=== PATIENT | female | born 1955 | race Caucasian/White ===

== ENCOUNTER → 2024-02-03 15:01 | Outpatient (REF) | payer MEDICARE, OTHER, SELFPAY | LOC: WDC 15:01 | PROVIDERS: ATTENDING PHYSICIAN Obstetrics & Gynecology; FAMILY PHYSICIAN Internal Medicine | DX: Z12.31 Encounter for screening mammogram for malignant neoplasm of breast (principal) | CPT/HCPCS: 77063; 77067 ==

== ENCOUNTER → 2024-04-02 06:55 | Outpatient (REF) | payer MEDICARE, OTHER, SELFPAY ==
[2024-04-02 07:49] LABS: % Basophils 1.2 % (0-2); % Eosinophils 2.2 % (0-6); % Immature Granulocytes 0.3 % (0-0.5); % Lymphocytes 34.7 % (20.5-51.1); % Monocytes 13.1 % (1.7-9.3); % Neutrophils 48.5 % (42.2-75.2); Absolute Basophils 0.1 10^3/uL (0-0.2); Absolute Eosinophils 0.2 10^3/uL (0-0.7); Absolute Lymphocytes 2.4 10^3/uL (1.2-3.4); Absolute Monocytes 0.9 10^3/uL (0.1-0.6); Absolute Neutrophils 3.3 10^3/uL (1.4-6.5); Hemoglobin 14.6 g/dL (12.0-16.0); Mean Corp Hgb Conc. 35.6 g/dL (33.0-37.0); Mean Corpuscular Hgb 32.5 pg (27.0-31.0); Mean Corpuscular Volume 91.3 fL (81.0-99.0); Mean Platelet Volume 9.8 fL (7.4-10.4); Nucleated Red Blood Cells % 0 %; Platelet Count 328 10^3/uL (130-400); Red Blood Cell Count 4.49 10^6/uL (4.20-5.40); Red Cell Dist. Width 12.8 % (11.5-14.5); White Blood Cell Count 6.8 10^3/uL (4.8-10.8)
[2024-04-02 08:02] LABS: ALT (SGPT) 54 U/L (0-35); AST (SGOT) 38 U/L (14-36); Albumin 4.5 g/dl (3.5-5.0); Alkaline Phosphatase 79 U/L (38-126); Blood Urea Nitrogen 14 mg/dl (7-17); Calcium 9.9 mg/dl (8.4-10.2); Carbon Dioxide 30 mmol/L (22-30); Chloride 97 mmol/L (98-107); Glucose 83 mg/dl (70-99); HDL Cholesterol 102 mg/dl; LDL Cholesterol, Calculated 45 mg/dl; Sodium 131 mmol/L (135-145); Total Bilirubin 0.5 mg/dl (0.2-1.3); Total Cholesterol 156 mg/dl (50-199); Total Protein 7.4 g/dl (6.3-8.2); Triglyceride 45 mg/dl (10-149); Very Low Density Lipoprotein 9 mg/dl (0-30); eGFR > 60.00
[2024-04-02 08:25] LABS: C-Reactive Protein < 5.00 mg/L (0.0-10.00)
[2024-04-02 08:27] LABS: Erythrocyte Sed Rate 3 mm/hour (0-20)
[2024-04-02 08:55] LABS: TSH 1.85 uIU/ml (0.47-4.68)
== END ==
LOC: REG 06:55
PROVIDERS: ATTENDING PHYSICIAN Internal Medicine Endocrinology, Diabetes & Metabolism; FAMILY PHYSICIAN Internal Medicine; REFERRING PHYSICIAN Internal Medicine Rheumatology
DX: E10.65 Type 1 diabetes mellitus with hyperglycemia (principal); E06.3 Autoimmune thyroiditis; L40.9 Psoriasis, unspecified; M16.0 Bilateral primary osteoarthritis of hip; M19.072 Primary osteoarthritis, left ankle and foot; M47.26 Other spondylosis with radiculopathy, lumbar region; M79.642 Pain in left hand
CPT/HCPCS: 36415; 80053; 80061; 83036; 84443; 85025; 85652; 86140

== ENCOUNTER 2024-05-14 12:33 | Emergency (ER) | payer MEDICARE, OTHER, SELFPAY ==
[2024-05-14 12:35] VITALS: BP 181/86
[2024-05-14 12:46] LABS: Glucose - Point of Care 146 mg/dl (70-99)
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
[2024-05-14 14:05] LABS: % Basophils 0.9 % (0-2); % Eosinophils 1.1 % (0-6); % Immature Granulocytes 0.3 % (0-0.5); % Lymphocytes 21.2 % (20.5-51.1); % Monocytes 10.7 % (1.7-9.3); % Neutrophils 65.8 % (42.2-75.2); Absolute Basophils 0.1 10^3/uL (0-0.2); Absolute Eosinophils 0.1 10^3/uL (0-0.7); Absolute Lymphocytes 2.2 10^3/uL (1.2-3.4); Absolute Monocytes 1.1 10^3/uL (0.1-0.6); Absolute Neutrophils 6.9 10^3/uL (1.4-6.5); Hematocrit 37.1 % (37.0-47.0); Hemoglobin 13.3 g/dL (12.0-16.0); Mean Corp Hgb Conc. 35.8 g/dL (33.0-37.0); Mean Corpuscular Hgb 32.8 pg (27.0-31.0); Mean Corpuscular Volume 91.4 fL (81.0-99.0); Mean Platelet Volume 9.4 fL (7.4-10.4); Nucleated Red Blood Cells % 0 %; Platelet Count 303 10^3/uL (130-400); Red Blood Cell Count 4.06 10^6/uL (4.20-5.40); Red Cell Dist. Width 12.7 % (11.5-14.5); White Blood Cell Count 10.4 10^3/uL (4.8-10.8)
[2024-05-14 14:06] VITALS: BP 119/64; BP 123/57; BP 126/66; PULSE 72; PULSE 76; PULSE 77
[2024-05-14 14:20] LABS: ALT (SGPT) 40 U/L (0-35); AST (SGOT) 34 U/L (14-36); Albumin 4.2 g/dl (3.5-5.0); Alkaline Phosphatase 78 U/L (38-126); Blood Urea Nitrogen 22 mg/dl (7-17); Calcium 9.5 mg/dl (8.4-10.2); Carbon Dioxide 29 mmol/L (22-30); Chloride 98 mmol/L (98-107); Glucose 102 mg/dl (70-99); Potassium 3.9 mmol/L (3.5-5.1); Sodium 134 mmol/L (135-145); Total Bilirubin 0.7 mg/dl (0.2-1.3); eGFR > 60.00
[2024-05-14 15:00] VITALS: BP 126/65
[2024-05-14 15:51] LABS: Urine Albumin Negative (Neg - Trace); Urine Bilirubin Negative (Negative); Urine Character Clear (Clear); Urine Color Yellow; Urine Glucose Negative (Negative); Urine Ketone Negative (Negative); Urine Leukocyte Negative (Negative); Urine Nitrite Negative (Negative); Urine Occult Blood Negative (Negative); Urine Urobilinogen Negative (Neg - 1+)
== END 2024-05-14 17:27 | disposition home or self-care (01) ==
LOC: EMR 12:33
PROVIDERS: Physician Assistant; EMERGENCY PHYSICIAN Emergency Medicine; FAMILY PHYSICIAN Internal Medicine
DX: R42 Dizziness and giddiness (principal); I10 Essential (primary) hypertension; E11.9 Type 2 diabetes mellitus without complications; Z86.73 Personal history of transient ischemic attack (TIA), and cerebral infarction without residual deficits; E78.00 Pure hypercholesterolemia, unspecified
CPT/HCPCS: 99285; 70450; 80053; 81003; 82962; 85025; 93005

== ENCOUNTER → 2024-06-24 06:51 | Outpatient (REF) | payer MEDICARE, OTHER, SELFPAY ==
[2024-06-24 08:22] LABS: ALT (SGPT) 63 U/L (0-35); AST (SGOT) 60 U/L (14-36); Albumin 4.3 g/dl (3.5-5.0); Alkaline Phosphatase 76 U/L (38-126); Blood Urea Nitrogen 17 mg/dl (7-17); Calcium 9.7 mg/dl (8.4-10.2); Carbon Dioxide 30 mmol/L (22-30); Chloride 97 mmol/L (98-107); Glucose 91 mg/dl (70-99); HDL Cholesterol 89 mg/dl; LDL Cholesterol, Calculated 58 mg/dl; Potassium 4.1 mmol/L (3.5-5.1); Sodium 134 mmol/L (135-145); Total Bilirubin 0.5 mg/dl (0.2-1.3); Total Cholesterol 160 mg/dl (50-199); Total Protein 6.7 g/dl (6.3-8.2); Triglyceride 66 mg/dl (10-149); Very Low Density Lipoprotein 13 mg/dl (0-30); eGFR > 60.00
[2024-06-24 08:26] LABS: Microalbumin, Random Urine 2.7 mg/dl (0.6-1.7)
[2024-06-24 08:35] LABS: Microalbumin/creatinine Ratio 12.3 mg/g
[2024-06-24 08:48] LABS: TSH 1.31 uIU/ml (0.47-4.68)
[2024-06-24 09:24] LABS: Glycohemoglobin (HgbA1c) 6.2 % (4.0-5.6)
== END ==
LOC: REG 06:51
PROVIDERS: ATTENDING PHYSICIAN Internal Medicine Endocrinology, Diabetes & Metabolism; FAMILY PHYSICIAN Internal Medicine
DX: E10.65 Type 1 diabetes mellitus with hyperglycemia (principal)
CPT/HCPCS: 36415; 80053; 80061; 82043; 82570; 83036; 84443

== ENCOUNTER 2024-06-26 11:51 | Emergency (ER) | payer MEDICARE, OTHER, SELFPAY ==
[2024-06-26 11:54] VITALS: BP 138/71
[2024-06-26 11:59] VITALS: BMI 25.2
[2024-06-26 12:00] VITALS: BP 104/75
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
[2024-06-26 12:28] LABS: % Basophils 0.8 % (0-2); % Eosinophils 0.8 % (0-6); % Immature Granulocytes 0.3 % (0-0.5); % Lymphocytes 19.5 % (20.5-51.1); % Monocytes 10.3 % (1.7-9.3); % Neutrophils 68.3 % (42.2-75.2); Absolute Basophils 0.1 10^3/uL (0-0.2); Absolute Eosinophils 0.1 10^3/uL (0-0.7); Absolute Lymphocytes 1.5 10^3/uL (1.2-3.4); Absolute Monocytes 0.8 10^3/uL (0.1-0.6); Absolute Neutrophils 5.4 10^3/uL (1.4-6.5); Hematocrit 36.3 % (37.0-47.0); Hemoglobin 13.3 g/dL (12.0-16.0); Mean Corp Hgb Conc. 36.6 g/dL (33.0-37.0); Mean Corpuscular Hgb 35.4 pg (27.0-31.0); Mean Corpuscular Volume 96.5 fL (81.0-99.0); Mean Platelet Volume 9.4 fL (7.4-10.4); Nucleated Red Blood Cells % 0 %; Platelet Count 315 10^3/uL (130-400); Red Blood Cell Count 3.76 10^6/uL (4.20-5.40); Red Cell Dist. Width 12.7 % (11.5-14.5); White Blood Cell Count 7.8 10^3/uL (4.8-10.8)
[2024-06-26 12:34] LABS: ALT (SGPT) 53 U/L (0-35); AST (SGOT) 43 U/L (14-36); Albumin 4.3 g/dl (3.5-5.0); Alkaline Phosphatase 77 U/L (38-126); Blood Urea Nitrogen 21 mg/dl (7-17); Calcium 9.7 mg/dl (8.4-10.2); Carbon Dioxide 28 mmol/L (22-30); Chloride 96 mmol/L (98-107); Estimated Creatinine Clearance 72 ml/min; Glucose 132 mg/dl (70-99); Potassium 4.3 mmol/L (3.5-5.1); Sodium 130 mmol/L (135-145); Total Bilirubin 0.6 mg/dl (0.2-1.3); Total Protein 6.6 g/dl (6.3-8.2); eGFR > 60.00
[2024-06-26 13:39] VITALS: BP 140/77
== END 2024-06-26 13:40 | disposition home or self-care (01) ==
LOC: EMR 11:51
PROVIDERS: EMERGENCY PHYSICIAN Student in an Organized Health Care Education/Training Program; FAMILY PHYSICIAN Internal Medicine
DX: R51.9 Headache, unspecified (principal); I10 Essential (primary) hypertension; E78.00 Pure hypercholesterolemia, unspecified; E11.9 Type 2 diabetes mellitus without complications; E03.9 Hypothyroidism, unspecified; G47.30 Sleep apnea, unspecified
CPT/HCPCS: 99284; 80053; 85025; 93005

== ENCOUNTER → 2024-07-02 11:13 | Outpatient (REF) | payer MEDICARE, OTHER, SELFPAY | LOC: PAVMRI 11:13 | PROVIDERS: ATTENDING PHYSICIAN Student in an Organized Health Care Education/Training Program; FAMILY PHYSICIAN Internal Medicine | DX: R47.1 Dysarthria and anarthria (principal) | CPT/HCPCS: 70553; A9575 ==

== ENCOUNTER → 2024-09-20 04:00 | Outpatient (REF) | payer MEDICARE, OTHER, SELFPAY | LOC: DHSLP 04:00 | PROVIDERS: ATTENDING PHYSICIAN Internal Medicine Critical Care Medicine; FAMILY PHYSICIAN Internal Medicine | DX: G47.33 Obstructive sleep apnea (adult) (pediatric) (principal) | CPT/HCPCS: 95800 ==

== ENCOUNTER → 2024-10-06 07:48 | Outpatient (REF) | payer MEDICARE, OTHER, SELFPAY ==
[2024-10-06 10:05] LABS: % Basophils 0.9 % (0-2); % Eosinophils 2.1 % (0-6); % Immature Granulocytes 0.2 % (0-0.5); % Lymphocytes 38.3 % (20.5-51.1); % Monocytes 13.2 % (1.7-9.3); % Neutrophils 45.3 % (42.2-75.2); Absolute Basophils 0.1 10^3/uL (0-0.2); Absolute Eosinophils 0.1 10^3/uL (0-0.7); Absolute Lymphocytes 2.2 10^3/uL (1.2-3.4); Absolute Monocytes 0.8 10^3/uL (0.1-0.6); Absolute Neutrophils 2.6 10^3/uL (1.4-6.5); Hematocrit 41.5 % (37.0-47.0); Hemoglobin 14.4 g/dL (12.0-16.0); Mean Corp Hgb Conc. 34.7 g/dL (33.0-37.0); Mean Corpuscular Hgb 34.8 pg (27.0-31.0); Mean Corpuscular Volume 100.2 fL (81.0-99.0); Mean Platelet Volume 9.9 fL (7.4-10.4); Nucleated Red Blood Cells % 0 %; Platelet Count 319 10^3/uL (130-400); Red Blood Cell Count 4.14 10^6/uL (4.20-5.40); Red Cell Dist. Width 12.1 % (11.5-14.5); White Blood Cell Count 5.7 10^3/uL (4.8-10.8)
[2024-10-06 10:43] LABS: ALT (SGPT) 42 U/L (0-35); AST (SGOT) 34 U/L (14-36); Albumin 4.5 g/dl (3.5-5.0); Alkaline Phosphatase 68 U/L (38-126); Blood Urea Nitrogen 17 mg/dl (7-17); Calcium 9.9 mg/dl (8.4-10.2); Carbon Dioxide 31 mmol/L (22-30); Chloride 101 mmol/L (98-107); Glucose 72 mg/dl (70-99); HDL Cholesterol 98 mg/dl; LDL Cholesterol, Calculated 53 mg/dl; Potassium 5.2 mmol/L (3.5-5.1); Sodium 141 mmol/L (135-145); Total Bilirubin 0.5 mg/dl (0.2-1.3); Total Cholesterol 161 mg/dl (50-199); Total Protein 7.3 g/dl (6.3-8.2); Triglyceride 50 mg/dl (10-149); Very Low Density Lipoprotein 10 mg/dl (0-30); eGFR > 60.00
[2024-10-06 11:09] LABS: TSH 1.12 uIU/ml (0.47-4.68)
[2024-10-08 16:01] LABS: Quantiferon Mitogen minus NIL 9.97 IU/mL; Quantiferon NIL 0.03 IU/mL; Quantiferon Plus TB1 minus NIL 0.03 IU/mL (<=0.34); Quantiferon Plus TB2 minus NIL 0.02 IU/mL (<=0.34); Quantiferon TB Gold Plus Negative (Negative)
== END ==
LOC: REG 07:48
PROVIDERS: ATTENDING PHYSICIAN Dermatology; FAMILY PHYSICIAN Internal Medicine; REFERRING PHYSICIAN Internal Medicine Endocrinology, Diabetes & Metabolism
DX: E10.65 Type 1 diabetes mellitus with hyperglycemia (principal); E06.3 Autoimmune thyroiditis; Z79.899 Other long term (current) drug therapy
CPT/HCPCS: 36415; 80053; 80061; 83036; 84443; 85025; 86480

== ENCOUNTER → 2024-12-31 06:55 | Outpatient (REF) | payer MEDICARE, OTHER, SELFPAY ==
[2024-12-31 07:37] LABS: Hematocrit 41.2 % (37.0-47.0); Hemoglobin 14.3 g/dL (12.0-16.0); Mean Corp Hgb Conc. 34.7 g/dL (33.0-37.0); Mean Corpuscular Hgb 34.1 pg (27.0-31.0); Mean Corpuscular Volume 98.3 fL (81.0-99.0); Mean Platelet Volume 9.5 fL (7.4-10.4); Platelet Count 316 10^3/uL (130-400); Red Blood Cell Count 4.19 10^6/uL (4.20-5.40); Red Cell Dist. Width 11.8 % (11.5-14.5); White Blood Cell Count 5.8 10^3/uL (4.8-10.8)
[2024-12-31 07:57] LABS: Erythrocyte Sed Rate 10 mm/hour (0-20)
[2024-12-31 08:07] LABS: ALT (SGPT) 49 U/L (0-35); AST (SGOT) 43 U/L (14-36); Albumin 3.9 g/dl (3.5-5.0); Alkaline Phosphatase 80 U/L (38-126); Blood Urea Nitrogen 16 mg/dl (7-17); Calcium 9.8 mg/dl (8.4-10.2); Carbon Dioxide 33 mmol/L (22-30); Chloride 98 mmol/L (98-107); Glucose 115 mg/dl (70-99); Potassium 5.3 mmol/L (3.5-5.1); Sodium 135 mmol/L (135-145); Total Bilirubin 0.5 mg/dl (0.2-1.3); Total Protein 6.8 g/dl (6.3-8.2); eGFR > 60.00
[2024-12-31 08:11] LABS: C-Reactive Protein < 5.00 mg/L (0.0-10.00)
[2024-12-31 08:42] LABS: TSH 0.61 uIU/ml (0.47-4.68)
[2024-12-31 08:46] LABS: Glycohemoglobin (HgbA1c) 6.3 % (4.0-5.6)
== END ==
LOC: REG 06:55
PROVIDERS: ATTENDING PHYSICIAN Internal Medicine Rheumatology; FAMILY PHYSICIAN Internal Medicine; REFERRING PHYSICIAN Internal Medicine Endocrinology, Diabetes & Metabolism
DX: L40.9 Psoriasis, unspecified (principal); M16.0 Bilateral primary osteoarthritis of hip; M19.072 Primary osteoarthritis, left ankle and foot; M47.26 Other spondylosis with radiculopathy, lumbar region; M79.642 Pain in left hand; E10.65 Type 1 diabetes mellitus with hyperglycemia; E06.3 Autoimmune thyroiditis
CPT/HCPCS: 36415; 80053; 83036; 84443; 85027; 85652; 86140

== ENCOUNTER → 2025-02-03 16:46 | Outpatient (REF) | payer MEDICARE, OTHER, SELFPAY | LOC: WDC 16:46 | PROVIDERS: ATTENDING PHYSICIAN Obstetrics & Gynecology; FAMILY PHYSICIAN Internal Medicine | DX: Z12.31 Encounter for screening mammogram for malignant neoplasm of breast (principal) | CPT/HCPCS: 77063; 77067 ==

== ENCOUNTER → 2025-02-24 07:48 | Outpatient (REF) | payer MEDICARE, OTHER, SELFPAY ==
[2025-02-24 09:55] LABS: % Basophils 0.9 % (0-2); % Eosinophils 2.7 % (0-6); % Immature Granulocytes 0.2 % (0-0.5); % Lymphocytes 34.4 % (20.5-51.1); % Monocytes 11.5 % (1.7-9.3); % Neutrophils 50.3 % (42.2-75.2); Absolute Basophils 0.1 10^3/uL (0-0.2); Absolute Eosinophils 0.2 10^3/uL (0-0.7); Absolute Lymphocytes 2.3 10^3/uL (1.2-3.4); Absolute Monocytes 0.8 10^3/uL (0.1-0.6); Absolute Neutrophils 3.3 10^3/uL (1.4-6.5); Hematocrit 41.1 % (37.0-47.0); Hemoglobin 14.6 g/dL (12.0-16.0); Mean Corp Hgb Conc. 35.5 g/dL (33.0-37.0); Mean Corpuscular Hgb 34.6 pg (27.0-31.0); Mean Corpuscular Volume 97.4 fL (81.0-99.0); Mean Platelet Volume 9.6 fL (7.4-10.4); Nucleated Red Blood Cells % 0 %; Platelet Count 325 10^3/uL (130-400); Red Blood Cell Count 4.22 10^6/uL (4.20-5.40); Red Cell Dist. Width 11.7 % (11.5-14.5); White Blood Cell Count 6.6 10^3/uL (4.8-10.8)
[2025-02-24 10:35] LABS: Blood Urea Nitrogen 17 mg/dl (7-17); Calcium 9.7 mg/dl (8.4-10.2); Carbon Dioxide 31 mmol/L (22-30); Chloride 98 mmol/L (98-107); Glucose 79 mg/dl (70-99); Potassium 4.6 mmol/L (3.5-5.1); Sodium 137 mmol/L (135-145); eGFR > 60.00
== END ==
LOC: REG 07:48
PROVIDERS: ATTENDING PHYSICIAN Student in an Organized Health Care Education/Training Program; FAMILY PHYSICIAN Internal Medicine
DX: Z01.818 Encounter for other preprocedural examination (principal)
CPT/HCPCS: 36415; 80048; 85025

== ENCOUNTER → 2025-03-30 07:39 | Outpatient (REF) | payer MEDICARE, OTHER, SELFPAY ==
[2025-03-30 08:59] LABS: % Basophils 1.4 % (0-2); % Eosinophils 4.4 % (0-6); % Immature Granulocytes 0.3 % (0-0.5); % Lymphocytes 28.8 % (20.5-51.1); % Monocytes 11.3 % (1.7-9.3); % Neutrophils 53.8 % (42.2-75.2); Absolute Basophils 0.1 10^3/uL (0-0.2); Absolute Eosinophils 0.3 10^3/uL (0-0.7); Absolute Lymphocytes 1.8 10^3/uL (1.2-3.4); Absolute Monocytes 0.7 10^3/uL (0.1-0.6); Absolute Neutrophils 3.4 10^3/uL (1.4-6.5); Hematocrit 40.9 % (37.0-47.0); Hemoglobin 14.1 g/dL (12.0-16.0); Mean Corp Hgb Conc. 34.5 g/dL (33.0-37.0); Mean Corpuscular Hgb 34.5 pg (27.0-31.0); Mean Platelet Volume 10.6 fL (7.4-10.4); Nucleated Red Blood Cells % 0 %; Platelet Count 308 10^3/uL (130-400); Red Blood Cell Count 4.09 10^6/uL (4.20-5.40); Red Cell Dist. Width 12.1 % (11.5-14.5); White Blood Cell Count 6.4 10^3/uL (4.8-10.8)
[2025-03-30 09:42] LABS: ALT (SGPT) 61 U/L (0-35); AST (SGOT) 42 U/L (14-36); Albumin 4.3 g/dl (3.5-5.0); Alkaline Phosphatase 86 U/L (38-126); Blood Urea Nitrogen 14 mg/dl (7-17); C-Reactive Protein < 5.00 mg/L (0.0-10.00); Calcium 9.6 mg/dl (8.4-10.2); Carbon Dioxide 31 mmol/L (22-30); Chloride 103 mmol/L (98-107); Glucose 91 mg/dl (70-99); Potassium 4.7 mmol/L (3.5-5.1); Sodium 144 mmol/L (135-145); Total Bilirubin 0.7 mg/dl (0.2-1.3); Total Protein 7.1 g/dl (6.3-8.2); eGFR > 60.00
[2025-03-30 09:56] LABS: Erythrocyte Sed Rate 6 mm/hour (0-20)
[2025-03-30 10:19] LABS: Glycohemoglobin (HgbA1c) 5.9 % (4.0-5.6)
[2025-03-30 10:31] LABS: TSH 0.13 uIU/ml (0.47-4.68)
== END ==
LOC: REG 07:39
PROVIDERS: ATTENDING PHYSICIAN Internal Medicine Rheumatology; FAMILY PHYSICIAN Internal Medicine; REFERRING PHYSICIAN Internal Medicine Endocrinology, Diabetes & Metabolism
DX: E10.65 Type 1 diabetes mellitus with hyperglycemia (principal); E06.3 Autoimmune thyroiditis; L40.9 Psoriasis, unspecified; M16.0 Bilateral primary osteoarthritis of hip; M19.072 Primary osteoarthritis, left ankle and foot; M47.26 Other spondylosis with radiculopathy, lumbar region; M79.642 Pain in left hand; I63.9 Cerebral infarction, unspecified
CPT/HCPCS: 36415; 80053; 83036; 84443; 85025; 85652; 86140

== ENCOUNTER → 2025-05-31 07:26 | Outpatient (REF) | payer MEDICARE, OTHER, SELFPAY | LOC: REG 07:26 | PROVIDERS: ATTENDING PHYSICIAN Internal Medicine; FAMILY PHYSICIAN Internal Medicine | DX: R19.7 Diarrhea, unspecified (principal) | CPT/HCPCS: 87324; 87449 ==

== ENCOUNTER 2025-06-10 14:47 | Inpatient (IN) | payer MEDICARE, OTHER, SELFPAY ==
[2025-06-10] VITALS (13 sets, daily range): BP systolic 128–174; BP diastolic 67–90; PULSE 73–85; BMI 24.3
[2025-06-10] MEDS: NSS 500 IV (12:02)
[2025-06-10 12:07] LABS: Hematocrit 40.8 % (37.0-47.0); Hemoglobin 14.5 g/dL (12.0-16.0); Mean Corp Hgb Conc. 35.5 g/dL (33.0-37.0); Mean Corpuscular Volume 96.7 fL (81.0-99.0); Nucleated Red Blood Cells % 0 %; Platelet Count 334 10^3/uL (130-400); Red Cell Dist. Width 11.5 % (11.5-14.5)
[2025-06-10 12:20] LABS: Blood Urea Nitrogen 12 mg/dl (7-17); Calcium 9.5 mg/dl (8.4-10.2); Carbon Dioxide 28 mmol/L (22-30); Chloride 99 mmol/L (98-107); Glucose 94 mg/dl (70-99); Potassium 3.8 mmol/L (3.5-5.1); Sodium 133 mmol/L (135-145); eGFR > 60.00
[2025-06-10 12:33] LABS: Troponin I < 0.012 ng/ml
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
--- NOTE | 2025-06-10 14:05 | HPS.HSE ---
Family Physician
-
Family Physician: Ruiz Cr
Chief Complaint
-
Lightheadedness
History of Present Illness
Patient is a 69 y/o female past medical history of Type I DM, prior stroke s/p TPA with no residual deficits, hypertension, and hyperlipidemia who presents with lightheadedness. Patient reports she has been experiencing intermittent episodes of
lightheadedness for the past week or so. She reports episodes usually did not last long, but today symptoms lasted much longer. She reports symptoms occurred while she was sitting and she felt like she may fall over. She denies spinning
sensation. She denies local numbness, tingling or weakness; but state during the event her whole body felt numb. She denies chest pain, palpitations, or changes in vision. She notes she recently recovered from having COVID and also had a recent
diarrheal illness which she states is improving as well.
Medical History
Past Medical History
Past Medical History: Reports Other
Additional Past Medical History:
Stroke
Diabetes Mellitus, Type I
Essential Hypertension
Hyperlipidemia
Psoriasis
Hypothyroidism
Past Surgical History: Reports Other
Additional Past Surgical History:
Breast Reduction
Appendectomy
Bilateral Carpal Tunnel
Trigger Finger Surgery
Left Shoulder Arthroscopy
Spine Surgery
Foot Surgery
Social History
Tobacco: Non-smoker
Alcohol: Daily (Patient reports either 1-2 glasses of wine or 1-2 cocktails nightly)
Family History
Family History: Not pertinent
Allergies / Home Medications
Allergies reflects when Allergies were last updated in [facility].
Home Medications with original date entered in [facility]
Allergy/Medication List:
Allergies
Allergy/AdvReac Type Severity Reaction Status Date / Time
No Known Allergies Allergy Verified 06/10/25 10:04
Home Medications
acetaminophen 500 mg tablet (Tylenol Extra Strength) 500 mg PO BIDPRN PRN ARTHRITIS 01/11/11
adalimumab 40 mg/0.8 mL subcutaneous syringe kit (Humira) 40 mg SC Q2W Autoimmune disorder 08/11/22
cyclosporine 0.05 % eye drops in a dropperette (Restasis) 1 drp BOTH EYES Q12H Eye condition 08/11/22
prednisolone acetate 1 % eye drops,suspension (Pred Forte) 1 drp RIGHT EYE MO Eye condition 08/11/22
aspirin 81 mg tablet,delayed release 81 mg PO DAILY #30 tabs 08/12/22
Patient Own Insulin Pump 1 sliding scale dose SC .VIA HUMALOG 06/10/25
atorvastatin 40 mg tablet (Lipitor) 40 mg PO QPM 06/10/25
levothyroxine 100 mcg tablet (Synthroid) 100 mcg PO DAILY 06/10/25
Review of Systems
-
A 12 point ROS was completed and negative except as noted: Yes
Constitutional: Denies Fever
Respiratory: Denies Cough or Trouble Breathing
Cardiac: Denies Chest Pain or Palpitations
Physical Exam
Vital Signs
Vital Signs
Temp Pulse Resp BP Pulse Ox
97.6 F 75 21 153/68 99
06/10/25 09:59 06/10/25 13:15 06/10/25 13:15 06/10/25 13:00 06/10/25 14:00
Physical Exam
General: Comfortable and Conversant
HEENT: Anicteric and Moist mucous membranes
Respiratory: Clear and Non Labored Respirations
Cardiac: S1/S2 and Regular Rhythm; No Murmur
GI: Soft and Non Tender
Rectal: Deferred by Provider
Musculoskeletal: No Clubbing and No Cyanosis
Skin: Warm and Dry
Neuro: Awake, Alert, Oriented and No Motor Deficits; No Slurred Speech or Facial Droop
Psych: Calm
Laboratory Results
-
06/10/25 11:54
06/10/25 11:53
Laboratory Results
Troponin I < 0.012 ng/ml 06/10/25 11:54
Data Reviewed
-
CT Scan: Report Reviewed by me
Lab Data: Labs Reviewed by me
Old Records: Reviewed
Impression/Plan
-
Recurrent Episodes of Lightheadedness, suspect Near-Syncope likely orthostasis related to volume depletion following recent diarrheal illness
-Neurology evaluated patient in ED
-Check EEG to evaluate for possible partial seizure
-Check orthostatic VS
-Check Echocardiogram
Prior Stroke s/p TPA without residual deficits
-Continue aspirin
Diabetes Mellitus, Type I
-Continue patient's own insulin pump and continuous glucose monitor
Hyperlipidemia
-Continue atorvastatin
Psoriasis
-Patient maintained on Humira as outpatient
Hypothyroidism
-Continue levothyroxine
DVT proph: SCDs
Code Status: Full Code
--- NOTE | 2025-06-10 14:18 | CON.NEURO ---
Neuro Assessment/Plan
Assessment
episodic lightheadedness, no provoking factors. with this pattern multiple times per day x weeks, this is too many to be TIA; could be simple partial seizure though I think non neuro etiology more likely
I would begin with routine EEG and any additional cardiac eval indicated, and if all negative I would proceed with brain MRI and trial of Keppra 500 BID
stroke secondary prevention ASA 81, Lipitor 40
Consultation
Order
Date of Consultation: 06/10/25
Requesting Provider: Shon Ya
Reason for Consult: lightheaded
Subjective/Objective
Subjective Data
Date of Service: June 10, 2025
from ED notes:
Patient with recurrent episodes of lightheadedness. She started talking about having some diarrhea which is significantly improved. Only had 1 episode earlier today. She also just got over COVID. She has no chest pain shortness of breath or
cough. Lightheadedness comes out of the blue.
patient reports episodes typically last ~10 minutes, multiple times per day. today symptoms lasted longer, and at the time I saw her she reported still having mild symptoms. No apparent triggers, not orthostatic. no other associated symptoms, no
weakness, numbness, speech changes, vision loss, abnormal movements,
history of stroke, presented with Left sided deficits which are now resolved. on ASA 81, Lipitor 40
Objective Data
Vital Signs
Temp Pulse Resp BP Pulse Ox
36.4 C 75 21 153/68 99
06/10/25 09:59 06/10/25 13:15 06/10/25 13:15 06/10/25 13:00 06/10/25 14:00
Lab Results
06/10/25 11:54
06/10/25 11:53
Sodium 133 mmol/L (135-145) L 06/10/25 11:53
Potassium 3.8 mmol/L (3.5-5.1) 06/10/25 11:53
BUN 12 mg/dl (7-17) 06/10/25 11:53
Glucose 94 mg/dl (70-99) 06/10/25 11:53
Calcium 9.5 mg/dl (8.4-10.2) 06/10/25 11:53
Patient Allergies
No Known Allergies Allergy (Verified 06/10/25 10:04)
Physical Exam
-
AAOx3, speech clear, language intact
VFF, EOMI, face symmetric
full strength b/l UE/LE
sensation intact touch/temp/vib
DTR normal/symm
FNF no ataxia
Medications
-
Home Medications
�Medication �Instructions �Recorded
Humalog Insulin Pump 0 units SC .CONT'D Diabetes 01/11/11
acetaminophen 500 mg tablet 500 mg PO BID PRN ARTHRITIS 01/11/11
(Tylenol Extra Strength)
fluticasone propionate 50 1 spray intranasal DAILY PRN 01/11/11
mcg/actuation nasal CONGESTION
spray,suspension
levothyroxine 75 mcg tablet 150 mcg PO DAILY Thyroid 01/11/11
(Synthroid)
omega-3 fatty acids 100 mg 200 mg PO DAILY Supplement 01/11/11
chewable tablet
adalimumab 40 mg/0.8 mL 40 mg SC Q2W Autoimmune disorder 08/11/22
subcutaneous syringe kit (Humira)
amlodipine 5 mg tablet 5 mg PO HS Blood pressure 08/11/22
cyclosporine 0.05 % eye drops in a 1 drp ophthalmic (eye) Q12H Eye 08/11/22
dropperette (Restasis) condition
lisinopril 10 mg tablet 10 mg PO DAILY Blood pressure 08/11/22
prednisolone acetate 1 % eye 1 drp RIGHT EYE WEEKLY Eye 08/11/22
drops,suspension (Pred Forte) condition
aspirin 81 mg tablet,delayed 81 mg PO DAILY #30 tabs 08/12/22
release
atorvastatin 40 mg tablet (Lipitor) 40 mg PO DAILY #30 tabs 08/12/22
calcium carb-ergocalciferol (vit 1 tab PO DAILY Supplement 08/12/22
D2) 600 mg calcium-200 unit tablet
meclizine 25 mg tablet 25 mg PO TID PRN dizziness #10 tabs 05/14/24
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
--- NOTE | 2025-06-10 14:54 | CM ---
CM reviewed chart, patient seen bedside with significant other, initial assessment completed. Patient is a 69 y/o female past medical history of Type I DM, prior stroke s/p TPA with no residual deficits, hypertension, and hyperlipidemia who presents
with lightheadedness.
Patient resides independently in a multiple story home, two steps to enter, bedroom on first floor. Patient reports having a cane which she needs in her car (hx major back surgery 2022), uses railings to get into house. Patient reports VN after back
surgery, denies SNF. Patient confirms PCP Ruiz Cr, pharmacy [facility], confirms prescription coverage. Patient denies insecurities at home. CM will continue to follow for all discharge planning needs.
Plan; home no needs likely
--- NOTE | 2025-06-10 16:38 | EEG.RPT ---
Electroencephalogram Report
Recording
Date of EE06/10/25
Type of EEG: Routine
Length of EEG recordin mins
Done with Video Recording: Yes
Patient Status: Inpatient
Recording Conditions: Awake, Drowsy and Asleep
Photic Stimulation Performed: Yes
Report
Clinical Background:�69 year old woman with episodic lightheadedness
Introduction: A routine bedside EEG was done using International 10-20 electrode placement protocol.
Background: In the most alert state, the PDR is 10-11 Hz in frequency with normal amplitude. There is spontaneous variability and reactivity.�Wicket waves in awake and light sleep
Sleep: Stage I sleep is seen.�
Focal/epileptiform: There were no focal or epileptiform discharges. No clinical or electrographic seizures occurred during this recording.
Photic stimulation: resulted in normal driving response. There was no photo myogenic or photoparoxysmal response.�.
Impression: Normal EEG
[2025-06-10 17:20] LABS: Glucose - Point of Care 132 mg/dl (70-99)
[2025-06-10] MEDS: PT'S OWN INSULIN PUMP - HumaLOG 3.05 UNIT SC (17:46)
[2025-06-10] MEDS: NSS 1000 IV (18:00)
[2025-06-10] MEDS: LIPITOR 40 MG PO (18:00)
[2025-06-10 23:26] LABS: Glucose - Point of Care 112 mg/dl (70-99)
[2025-06-10] MEDS: PT'S OWN INSULIN PUMP - HumaLOG 1.1 UNIT SC (23:46)
[2025-06-11] VITALS (7 sets, daily range): BP systolic 137–158; BP diastolic 73–99; PULSE 72–77
[2025-06-11] MEDS: SYNTHROID 100 MCG PO (05:44)
[2025-06-11 07:47] LABS: Blood Urea Nitrogen 12 mg/dl (7-17); Calcium 9.0 mg/dl (8.4-10.2); Carbon Dioxide 26 mmol/L (22-30); Chloride 105 mmol/L (98-107); Estimated Creatinine Clearance 71 ml/min; Glucose 100 mg/dl (70-99); Potassium 4.1 mmol/L (3.5-5.1); Sodium 135 mmol/L (135-145); eGFR > 60.00
[2025-06-11 07:59] LABS: Glucose - Point of Care 169 mg/dl (70-99)
[2025-06-11] MEDS: ASPIR LOW (ENTERIC COATED) 81 MG PO (08:03)
[2025-06-11] MEDS: PT'S OWN INSULIN PUMP - HumaLOG 6.35 UNIT SC (08:03)
[2025-06-11 08:51] LABS: Glycohemoglobin (HgbA1c) 5.7 % (4.0-5.6)
--- NOTE | 2025-06-11 10:15 | W.PN.HOSP.TC ---
Today's Communication/Plan
-
await MRI and orthostatics
stool studies for subacute diarrhea
Assessment / Plan
Assessment / Plan
Assessment:
Recurrent Episodes of Lightheadedness, suspect Near-Syncope likely orthostasis related to volume depletion following recent diarrheal illness
- s/p EEG, await results. May need trial of Keppra
- Echo unremarkable, Tele unremarkable
- check orthostatics
- MRI brain
- follow Neuro recs
Subacute diarrhea
- previously C. Diff negative 2 weeks ago
- stool studies for culture, Norovirus and O/P
- can continue Imodium/Fiber home regimen
- consider OP GI eval
Prior Stroke s/p TPA without residual deficits
- continue aspirin
Diabetes Mellitus, Type I
- continue patient's own insulin pump and continuous glucose monitor
Hyperlipidemia
- continue atorvastatin
Psoriasis
- patient maintained on Humira as outpatient
Hypothyroidism
- continue levothyroxine
DVT proph: SCDs
Code Status: Full Code
Anticipated Discharge: Within 24 hours
Subjective/Interval History
-
Date of Service: June 11, 2025
no further lightheadedness, feels improved
ambulating well
Objective Data
-
Labs:
Laboratory Results
06/11/25
05:39
Sodium 135
Potassium 4.1
Chloride 105
Carbon Dioxide 26
BUN 12
Creatinine 0.6
Glucose 100 H
Calcium 9.0
Vital Signs:
Vital Signs
Temp Pulse Resp BP Pulse Ox
98.4 F 72 18 148/99 97
06/11/25 08:50 06/11/25 08:50 06/11/25 08:50 06/11/25 08:50 06/11/25 08:50
I&O
06/10/25 06/11/25 06/12/25
06:59 06:59 06:59
Intake Total 1200 / 1200
Balance 1200 / 1200
Physical Exam
-
General: No Apparent Distress
HEENT: Normocephalic and Atraumatic
Respiratory: Negative Wheezes
Cardiac: Regular Rhythm and S1/S2
GI: Soft
Neuro: AO x 3
Psych: Calm
Data Reviewed
-
Total Time Spent with Patient (in minutes): 41
Labs: Labs Reviewed by me
[2025-06-11 12:15] LABS: Glucose - Point of Care 118 mg/dl (70-99)
[2025-06-11] MEDS: PT'S OWN INSULIN PUMP - HumaLOG 6.4 UNIT SC (13:00)
[2025-06-11] MEDS: LIPITOR 40 MG PO (17:24)
[2025-06-11] MEDS: PT'S OWN INSULIN PUMP - HumaLOG 3.68 UNIT SC (17:52)
[2025-06-11 22:02] LABS: Glucose - Point of Care 111 mg/dl (70-99)
[2025-06-11] MEDS: PT'S OWN INSULIN PUMP - HumaLOG 1.56 UNIT SC (23:28)
[2025-06-12 03:00] VITALS: BP 121/65
[2025-06-12] MEDS: SYNTHROID 100 MCG PO (05:02)
[2025-06-12 07:00] VITALS: BP 140/76
[2025-06-12 07:11] LABS: Glucose - Point of Care 83 mg/dl (70-99)
[2025-06-12] MEDS: PT'S OWN INSULIN PUMP - HumaLOG 6.82 UNIT SC (08:11)
[2025-06-12] MEDS: ASPIR LOW (ENTERIC COATED) 81 MG PO (08:18)
[2025-06-12 08:26] VITALS: BP 140/76; BP 146/74; BP 146/77; PULSE 66; PULSE 70; PULSE 73
--- NOTE | 2025-06-12 10:10 | W.PN.HOSP.TC ---
Today's Communication/Plan
-
dc to home pending MRI results
Assessment / Plan
Assessment / Plan
Assessment:
Recurrent Episodes of Lightheadedness, suspect Near-Syncope likely orthostasis related to volume depletion following recent diarrheal illness
- s/p EEG, normal. She was offered a trial of Keppra by Neurology but declined.
- Echo unremarkable, Tele unremarkable
- orthostatics - normal
- MRI brain pending
- follow Neuro recs
Subacute diarrhea
- previously C. Diff negative 2 weeks ago
- stool studies for culture pending. Leukocytes negative. Norovirus negative
- can continue Imodium/Fiber home regimen
- consider OP GI eval
Prior Stroke s/p TPA without residual deficits
- continue aspirin
Diabetes Mellitus, Type I
- continue patient's own insulin pump and continuous glucose monitor
Hyperlipidemia
- continue atorvastatin
Psoriasis
- patient maintained on Humira as outpatient
Hypothyroidism
- continue levothyroxine
DVT proph: SCDs
Code Status: Full Code
More than 30 minutes spent in discharge including
Final examination of the patient
Summarizing hospital stay
Instructions for continuing care to all relevant caregivers
Preparation of discharge records, prescriptions, and referral forms
Total time spent (in minutes): 41
Anticipated Discharge: Today
Subjective/Interval History
-
Date of Service: June 12, 2025
resting comfortably, no complaints
Objective Data
-
Vital Signs:
Vital Signs
Temp Pulse Resp BP Pulse Ox
98.2 F 66 16 140/76 100
06/12/25 07:00 06/12/25 07:00 06/12/25 07:00 06/12/25 07:00 06/12/25 07:00
I&O
06/11/25 06/12/25 06/13/25
06:59 06:59 06:59
Intake Total 1200 / 1200 920 / 920
Balance 1200 / 1200 920 / 920
Physical Exam
-
General: No Apparent Distress
HEENT: Normocephalic and Atraumatic
Respiratory: Negative Wheezes
Cardiac: Regular Rhythm and S1/S2
GI: Soft and Nontender
Neuro: AO x 3
Hematologic / Lymphatic: No Lymphadenopathy
Psych: Calm
Data Reviewed
-
Total Time Spent with Patient (in minutes): 41
Labs: Labs Reviewed by me
--- NOTE | 2025-06-12 10:15 | W.DS.TRANS ---
DC Summary - Commercial Producer
-
Discharge Instructions:
Discharge Diagnosis/Procedures lightheadedness, near-syncope
Diet Diabetic, Carb Controlled
Activity As tolerated
Instructions:
Stand-Alone Forms:
Changes to Home Medications: No
Discharge Medications:
DC Medications w/original date entered in [facility]
acetaminophen 500 mg tablet (Tylenol Extra Strength) 500 mg PO BIDPRN PRN ARTHRITIS 01/11/11
adalimumab 40 mg/0.8 mL subcutaneous syringe kit (Humira) 40 mg SC Q2W Autoimmune disorder 08/11/22
cyclosporine 0.05 % eye drops in a dropperette (Restasis) 1 drp BOTH EYES Q12H Eye condition 08/11/22
prednisolone acetate 1 % eye drops,suspension (Pred Forte) 1 drp RIGHT EYE MO Eye condition 08/11/22
aspirin 81 mg tablet,delayed release 81 mg PO DAILY #30 tabs 08/12/22
Patient Own Insulin Pump 1 sliding scale dose SC .VIA HUMALOG 06/10/25
atorvastatin 40 mg tablet (Lipitor) 40 mg PO QPM 06/10/25
calcium 500 mg (as carbonate)-vitamin D3 10 mcg (400 unit) tablet (Calcium 500 + D) 1 tab PO DAILY 06/10/25
levothyroxine 100 mcg tablet (Synthroid) 100 mcg PO DAILY 06/10/25
Home Medication Changes
Pending Results: No
Total time spent discharging patient (in min): 41
--- NOTE | 2025-06-12 10:37 | CM ---
Patient is for discharge to home today no needs.
Plan; Home no needs.
[2025-06-12 11:39] LABS: Glucose - Point of Care 78 mg/dl (70-99)
[2025-06-12 15:00] VITALS: BP 150/80
[2025-06-12] MEDS: PT'S OWN INSULIN PUMP - HumaLOG 8.09 UNIT SC (15:49)
== END 2025-06-12 17:23 | disposition home or self-care (01) | DRG 312 ==
LOC: 4 WEST ACU 14:47
PROVIDERS: Physician Assistant Medical; ADMITTING PHYSICIAN Internal Medicine; ATTENDING PHYSICIAN Internal Medicine; CONSULT PHYSICIAN Psychiatry & Neurology Clinical Neurophysiology; EMERGENCY PHYSICIAN Emergency Medicine; FAMILY PHYSICIAN Internal Medicine
DX: I95.1 Orthostatic hypotension (principal); R42 Dizziness and giddiness; E03.9 Hypothyroidism, unspecified; E10.9 Type 1 diabetes mellitus without complications; E78.00 Pure hypercholesterolemia, unspecified; H40.9 Unspecified glaucoma; I10 Essential (primary) hypertension; G47.33 Obstructive sleep apnea (adult) (pediatric); R19.7 Diarrhea, unspecified; K21.9 Gastro-esophageal reflux disease without esophagitis; E86.9 Volume depletion, unspecified; J30.9 Allergic rhinitis, unspecified; L40.8 Other psoriasis; Z60.2 Problems related to living alone; Z96.41 Presence of insulin pump (external) (internal); Z86.16 Personal history of COVID-19; Z90.49 Acquired absence of other specified parts of digestive tract; Z79.82 Long term (current) use of aspirin; Z79.890 Hormone replacement therapy; Z79.4 Long term (current) use of insulin; Z86.73 Personal history of transient ischemic attack (TIA), and cerebral infarction without residual deficits; Z86.19 Personal history of other infectious and parasitic diseases
CPT/HCPCS: 70450; 70553; 80048; 82962; 83036; 84484; 85025; 87045; 87046; 87427; 87798; 89055; 93005; 93306; 95816; 96360; 96361; 99285; A9575

== ENCOUNTER → 2025-06-28 06:46 | Outpatient (REF) | payer MEDICARE, OTHER, SELFPAY ==
[2025-06-28 08:06] LABS: Hematocrit 39.9 % (37.0-47.0); Hemoglobin 13.4 g/dL (12.0-16.0); Mean Corp Hgb Conc. 33.6 g/dL (33.0-37.0); Mean Corpuscular Volume 99.3 fL (81.0-99.0); Nucleated Red Blood Cells % 0 %; Platelet Count 305 10^3/uL (130-400); Red Cell Dist. Width 12.1 % (11.5-14.5)
[2025-06-28 08:41] LABS: Microalbumin, Random Urine < 0.6 mg/dl (0.6-1.7)
[2025-06-28 09:06] LABS: ALT (SGPT) 90 U/L (0-35); AST (SGOT) 49 U/L (14-36); Albumin 4.1 g/dl (3.5-5.0); Alkaline Phosphatase 77 U/L (38-126); Blood Urea Nitrogen 14 mg/dl (7-17); Calcium 9.5 mg/dl (8.4-10.2); Carbon Dioxide 31 mmol/L (22-30); Chloride 104 mmol/L (98-107); Glucose 119 mg/dl (70-99); HDL Cholesterol 67 mg/dl; LDL Cholesterol, Calculated 68 mg/dl; Potassium 4.7 mmol/L (3.5-5.1); Sodium 140 mmol/L (135-145); Total Protein 7.2 g/dl (6.3-8.2); Very Low Density Lipoprotein 11 mg/dl (0-30); eGFR > 60.00
[2025-06-28 09:08] LABS: Glycohemoglobin (HgbA1c) 5.9 % (4.0-5.6)
[2025-06-28 10:23] LABS: C-Reactive Protein < 5.00 mg/L (0.0-10.00)
[2025-06-28 10:54] LABS: TSH 0.06 uIU/ml (0.47-4.68)
== END ==
LOC: REG 06:46
PROVIDERS: ATTENDING PHYSICIAN Internal Medicine Rheumatology; FAMILY PHYSICIAN Internal Medicine; OTHER PHYSICIAN Specialist; REFERRING PHYSICIAN Internal Medicine Endocrinology, Diabetes & Metabolism
DX: L40.9 Psoriasis, unspecified (principal); M16.0 Bilateral primary osteoarthritis of hip; M19.072 Primary osteoarthritis, left ankle and foot; M47.26 Other spondylosis with radiculopathy, lumbar region; M79.642 Pain in left hand; E10.65 Type 1 diabetes mellitus with hyperglycemia; E06.3 Autoimmune thyroiditis; R19.7 Diarrhea, unspecified
CPT/HCPCS: 36415; 80053; 80061; 82043; 83036; 84443; 85025; 85652; 86140

== ENCOUNTER → 2025-06-29 10:47 | Outpatient (REF) | payer MEDICARE, OTHER, SELFPAY | LOC: REG 10:47 | PROVIDERS: ATTENDING PHYSICIAN Specialist; FAMILY PHYSICIAN Internal Medicine | DX: R19.7 Diarrhea, unspecified (principal) | CPT/HCPCS: 36415; 83993; 87328; 87329; 89055 ==

== ENCOUNTER 2025-07-14 06:19 | Day surgery (SDC) | payer MEDICARE, OTHER, SELFPAY ==
[2025-07-14 07:43] LABS: Glucose - Point of Care 96 mg/dl (70-99)
== END 2025-07-14 09:45 | disposition home or self-care (01) ==
LOC: GI 06:19
PROVIDERS: ATTENDING PHYSICIAN Specialist; FAMILY PHYSICIAN Internal Medicine
DX: K59.1 Functional diarrhea (principal); K63.5 Polyp of colon; K63.89 Other specified diseases of intestine
CPT/HCPCS: 45380; 82962; 88305

== ENCOUNTER → 2025-09-14 07:14 | Outpatient (REF) | payer MEDICARE, OTHER, SELFPAY ==
[2025-09-14 08:30] LABS: ALT (SGPT) 40 U/L (0-35); AST (SGOT) 30 U/L (14-36); Albumin 4.4 g/dl (3.5-5.0); Alkaline Phosphatase 74 U/L (38-126); Blood Urea Nitrogen 16 mg/dl (7-17); Calcium 9.7 mg/dl (8.4-10.2); Carbon Dioxide 30 mmol/L (22-30); Chloride 102 mmol/L (98-107); Glucose 143 mg/dl (70-99); Potassium 4.8 mmol/L (3.5-5.1); Sodium 138 mmol/L (135-145); Total Protein 7.1 g/dl (6.3-8.2); eGFR > 60.00
== END ==
LOC: REG 07:14
PROVIDERS: ATTENDING PHYSICIAN Internal Medicine Rheumatology; FAMILY PHYSICIAN Internal Medicine
DX: L40.9 Psoriasis, unspecified (principal); M16.0 Bilateral primary osteoarthritis of hip; M19.042 Primary osteoarthritis, left hand; M19.072 Primary osteoarthritis, left ankle and foot; M47.26 Other spondylosis with radiculopathy, lumbar region; M79.642 Pain in left hand
CPT/HCPCS: 36415; 80053

== ENCOUNTER → 2025-10-04 14:50 | Outpatient (REF) | payer MEDICARE, OTHER, SELFPAY | LOC: HWRAD 14:50 | PROVIDERS: FAMILY PHYSICIAN Internal Medicine | DX: R22.1 Localized swelling, mass and lump, neck (principal) | CPT/HCPCS: 76536 ==

== ENCOUNTER → 2025-10-05 07:27 | Outpatient (REF) | payer MEDICARE, OTHER, SELFPAY ==
[2025-10-05 08:55] LABS: ALT (SGPT) 37 U/L (0-35); AST (SGOT) 29 U/L (14-36); Albumin 4.3 g/dl (3.5-5.0); Alkaline Phosphatase 68 U/L (38-126); Blood Urea Nitrogen 12 mg/dl (7-17); Calcium 9.5 mg/dl (8.4-10.2); Carbon Dioxide 32 mmol/L (22-30); Chloride 103 mmol/L (98-107); Glucose 89 mg/dl (70-99); HDL Cholesterol 76 mg/dl; LDL Cholesterol, Calculated 61 mg/dl; Potassium 4.6 mmol/L (3.5-5.1); Sodium 139 mmol/L (135-145); Total Protein 7.1 g/dl (6.3-8.2); Very Low Density Lipoprotein 11 mg/dl (0-30); eGFR > 60.00
[2025-10-05 09:24] LABS: TSH 2.31 uIU/ml (0.47-4.68)
[2025-10-05 09:46] LABS: Glycohemoglobin (HgbA1c) 5.8 % (4.0-5.9)
[2025-10-05 13:03] LABS: tTG IgA Antibody 5.0 EU/ml (0-19); tTG IgG Antibody 18.1 EU/ml (0-19)
== END ==
LOC: REG 07:27
PROVIDERS: ATTENDING PHYSICIAN Internal Medicine Endocrinology, Diabetes & Metabolism; FAMILY PHYSICIAN Internal Medicine
DX: E10.65 Type 1 diabetes mellitus with hyperglycemia (principal); E06.3 Autoimmune thyroiditis; R19.7 Diarrhea, unspecified
CPT/HCPCS: 36415; 80053; 80061; 82784; 83036; 83516; 84443; 86231

== ENCOUNTER → 2025-11-12 09:49 | Outpatient (REF) | payer MEDICARE, OTHER, SELFPAY | LOC: PAVMRI 09:49 | PROVIDERS: ATTENDING PHYSICIAN Orthopaedic Surgery; FAMILY PHYSICIAN Internal Medicine | DX: M25.552 Pain in left hip (principal) | CPT/HCPCS: 73721 ==